=== PATIENT | male | born 1985 | race Caucasian/White ===

== ENCOUNTER 2018-07-22 16:59 | Emergency (ER) | payer MEDICAID, OTHER ==
[~2018-07-22] VITALS: Wt 112.3 kg
[2018-07-22 17:03] VITALS: BP 155/76; PULSE 68; RESP 18
[2018-07-22] MEDS ORDERED: LIDOCAINE 1% (MPF) 5 ML VIAL INJ ONE (19:00)
[2018-07-22] MEDS ORDERED: AZITHROMYCIN 250 MG TAB PO ONE (19:00)
[2018-07-22] MEDS ORDERED: CEFTRIAXONE 250 MG INJ IM ONE (19:00)
[2018-07-22] MEDS ORDERED: CIPR500T4 PO (20:27)
--- NOTE | 2018-07-24 21:52 | ERD ---
ER Documentation Chief Complaint Chief Complaint dysuria HPI 32-year-old male presents with one-week history of white penile discharge. Patient also states he has been having flank pain. Patient admits to having unprotected intercourse with partners outside his marriage. Also states there is dysuria but denies hematuria. Denies fevers, vomiting, diarrhea. Denies past medical history. Denies allergies. Denies medications. Denies surgeries. Denies alcohol, tobacco, drug use. Up to date on vaccines. ROS All systems reviewed and are negative except as per history of present illness. Medications Home Meds Active Scripts Ciprofloxacin Hcl* (Ciprofloxacin Hcl*) 500 Mg Tablet, 500 MG PO BID for pyelonephritis for 7 Days, #14 TAB Prov:VICK MONSALVE 07/22/18 Allergies Allergies: Coded Allergies: No Known Drug Allergies (Verified Allergy, Unknown, 07/22/18) PMhx/Soc Medical and Surgical Hx: pt denies Medical Hx, pt denies Surgical Hx Hx Alcohol Use: Yes Hx Substance Use: No Hx Tobacco Use: No Smoking Status: Never smoker FmHx Family History: No diabetes, No coronary disease, No other Physical Exam Vitals Vital Signs Date Temp Pulse Resp B/P (MAP) Pulse Ox O2 O2 Flow FiO2 Time Delivery Rate 07/22/18 98.1 68 18 155/76 98 17:03 (102) Physical Exam Const: No acute distress Resp: Clear to auscultation bilaterally Cardio: Regular rate and rhythm, no murmurs Abd: Soft, non tender, non distended. Normal bowel sounds Back: Right sided CVA tenderness. : White discharge noted dripping out of urethra. No lesions, edema, or erythema noted. Neur: Awake and alert Psych: Normal Mood and Affect Results 24 hrs Laboratory Tests Test 07/22/18 18:50 Urine Color YELLOW Urine Clarity SLIGHTLY CLOUDY Urine pH 5.0 Urine Specific Dwarf 1.027 Urine Ketones NEGATIVE mg/dL Urine Nitrite NEGATIVE mg/dL Urine Bilirubin NEGATIVE mg/dL Urine Urobilinogen NEGATIVE mg/dL Urine Leukocyte Esterase 1+ Shane/ul Urine Microscopic RBC 3 /HPF Urine Microscopic WBC 34 /HPF Urine Mucus FEW /HPF Urine Hemoglobin NEGATIVE mg/dL Urine Glucose NEGATIVE mg/dL Urine Total Protein NEGATIVE mg/dl Chlamydia trachomatis RNA (TMA) NOT DETECTED Chlamydia/GC Comment SEE NOTE Neisseria gonorrhoeae RNA (TMA) NOT DETECTED Current Medications Medications Dose Sig/Pratik Start Time Status Last (Trade) Ordered Route PRN Stop Time Admin Dose Reason Admin Ceftriaxone 250 mg ONCE ONCE 07/22/18 DC 07/22/18 Sodium IM 19:00 18:54 (Rocephin) 07/22/18 19:01 Lidocaine 5 ml ONCE ONCE 07/22/18 DC 07/22/18 (Xylocaine INJ 19:00 18:54 1% (Mpf)) 07/22/18 19:01 1,000 mg ONCE ONCE 07/22/18 DC 07/22/18 Azithromycin PO 19:00 18:54 (Zithromax) 07/22/18 19:01 Procedures/MDM ER Course: UA, UC. Ceftriaxone and Azithromyacin administered. MDM: 32-year-old male presents with one-week history of white penile discharge. Patient also states he has been having flank pain. Patient admits to having unprotected intercourse with partners outside his marriage. Also states there is dysuria but denies hematuria. Denies fevers, vomiting, diarrhea. Due to patient's history and symptoms, decision was made to treat prophylactically for gonorrhea and chlamydia with azithromycin and ceftriaxone. In addition, UA showed possible UTI. These results, combined with flank tenderness raise suspi cion for pyelonephritis. Patient given Rx for ciprofloxacin. Patient discharged with strict ER precautions. Patient advised to follow up with PMD. All questions answered at discharge. Departure Diagnosis: Primary Impression: Dysuria Additional Impression: Pyelonephritis Condition: Stable Patient Instructions: Dysuria, Pyelonephritis, Male (Adult) Referrals: [facility] YOU HAVE RECEIVED A MEDICAL SCREENING EXAM AND THE RESULTS INDICATE THAT YOU DO NOT HAVE A CONDITION THAT REQUIRES URGENT TREATMENT IN THE EMERGENCY DEPARTMENT. FURTHER EVALUATION AND TREATMENT OF YOUR CONDITION CAN WAIT UNTIL YOU ARE SEEN IN YOUR DOCTORS OFFICE WITHIN THE NEXT 1-2 DAYS. IT IS YOUR RESPONSIBILITY TO MAKE AN APPOINTMENT FOR FOLOW-UP CARE. IF YOU HAVE A PRIMARY DOCTOR --you should call your primary doctor and schedule an appointment IF YOU DO NOT HAVE A PRIMARY DOCTOR YOU CAN CALL OUR PHYSICIAN REFERRAL HOTLINE AT IF YOU CAN NOT AFFORD TO SEE A PHYSICIAN YOU CAN CHOSE FROM THE FOLLOWING [facility] [id number] [facility] [address] [facility] [facility] [address] [facility]. [employer] [facility] [address] [facility] [address] [facility]. [employer] [address] Additional Instructions: FOLLOW UP WITH YOUR PRIMARY CARE PHYSICIAN TOMORROW.Return to this facility if you are not improving as expected. VICK MONSALVE Jul 24, 2018 21:52
== END 2018-07-22 20:34 | disposition home or self-care (01) ==
LOC: FTE 16:59
DX: N12 Tubulo-interstitial nephritis, not specified as acute or chronic (principal)
CPT/HCPCS: 81001; 87086; 87591; J0696; Z7610; 96372